=== PATIENT | male | born 1990 | race Caucasian/White ===

== ENCOUNTER 2016-06-11 18:41 | Emergency (ER) | payer OTHER ==
[2016-06-11 20:10] VITALS: BP 131/77
--- NOTE | 2016-06-11 20:30 | UC ---
Skin Complaint HPI - HPI Summary HPI Summary: patient has had a red bump at the edge of his umblicus, it is getting bigger and painful - History of Current Complaint Chief Complaint: UCSkin Time Seen by Provider: 06/11/16 20:18 Stated Complaint: SKIN COMPLAINT Hx Obtained From: Patient Onset/Duration: Lasting Days Skin Exposure Onset/Duration: Days Ago Timing: Constant Onset Severity: Moderate Current Severity: Moderate Pain Scale Used: 0-10 Numeric Location: Discrete - umbilicus Character: Swelling, Pruritus, Pain, Redness Aggravating: Nothing Alleviating: Nothing - Allergy/Home Medications Allergies/Adverse Reactions: Allergies Allergy/AdvReac Type Severity Reaction Status Date / Time No Known Allergies Allergy Verified 06/11/16 20:04 Review of Systems Constitutional: Negative Skin: Other - red pustule in belly button Eyes: Negative ENT: Negative Respiratory: Negative Cardiovascular: Negative Gastrointestinal: Negative Genitourinary: Negative Motor: Negative Neurovascular: Negative Musculoskeletal: Negative Neurological: Negative Psychological: Negative All Other Systems Reviewed And Are Negative: Yes PMH/Surg Hx/FS Hx/Imm Hx Previously Healthy: Yes Respiratory History Of: Reports: Asthma - exercised induced as a child - Surgical History Surgical History: None - Family History Known Family History: Negative: Cardiac Disease, Hypertension - Social History Alcohol Use: None Substance Use Type: None Smoking Status (MU): Never Smoked Tobacco Physical Exam Triage Information Reviewed: Yes Appearance: Well-Appearing, Well-Nourished, Pain Distress Vital Signs: Initial Vital Signs Temp 99.0 F 06/11/16 20:05 Pulse 76 06/11/16 20:05 Resp 16 06/11/16 20:05 BP 131/77 06/11/16 20:05 Pulse Ox 100 06/11/16 20:05 Vital Signs Reviewed: Yes Eye Exam: Normal Eyes: Positive: Conjunctiva Clear ENT Exam: Normal Dental Exam: Normal Neck exam: Normal Respiratory Exam: Normal Respiratory: Positive: Chest non-tender, Lungs clear, Normal breath sounds Cardiovascular Exam: Normal Cardiovascular: Positive: RRR, No Murmur, Pulses Normal Abdominal Exam: Normal Bowel Sounds: Positive: Present Musculoskeletal Exam: Normal Neurological Exam: Normal Neurological: Positive: Alert, Muscle Tone Normal Psychological Exam: Normal Skin Exam: Normal Course/Dx - Course Course Of Treatment: hx obtained, exam performed, small pustule, noted, it drained with small amount of pressure,treated for infected ingrown hair - Differential Diagnoses - Skin Complaint Differential Diagnoses: Abscess - Diagnoses Provider Diagnoses: infected ingrown hair Discharge - Discharge Plan Condition: Stable Disposition: HOME Prescriptions: Mupirocin 2% CREAM* [Bactroban 2% CREAM*] 1 applic TOPICAL BID #1 tube Additional Instructions: you are being treated for a subcutaneous infection probably caused by ingrown hair. apply the cream twice a day to the area for 1 week, follow upw tih any worsening symtpoms.
== END 2016-06-11 20:40 | disposition home or self-care (01) ==
LOC: UCCORT 18:41
DX: L73.1 Pseudofolliculitis barbae (principal)
CPT/HCPCS: 99212; G0463

== ENCOUNTER 2017-12-05 13:00 | Emergency (ER) | payer BC, OTHER ==
[2017-12-05 13:52] VITALS: BP 137/83
--- NOTE | 2017-12-07 10:00 | UC ---
Discharge - Sign-Out/Discharge Documenting (check all that apply): Post-Discharge Follow Up All imaging exams completed and their final reports reviewed: No Studies - Discharge Plan Disposition: LEFT WITHOUT BEING SEEN Referrals: Gavi Lainez [Primary Care Provider] - - Billing Disposition and Condition Disposition: Left Without Being Seen
== END 2017-12-05 13:52 | disposition left against medical advice (07) ==
LOC: UCCORT 13:00
DX: S61.412A Laceration without foreign body of left hand, initial encounter (principal); Z53.21 Procedure and treatment not carried out due to patient leaving prior to being seen by health care provider

== ENCOUNTER 2017-12-05 13:52 | Emergency (ER) | payer BC ==
[2017-12-05 15:33] VITALS: BP 137/78
[2017-12-05] MEDS ORDERED: Tetan/Diph/Pertus SYR(Tdap)* 0.5 ML SYR(BOOSTRIX) use SYR IM ONE (15:59)
--- NOTE | 2017-12-05 16:00 | UC ---
Laceration HPI - HPI Summary HPI Summary: Here w/ laceration to LEFT thumb from dirty kitchen knife today 1300. Pt states he was cutting potatoes and accidently cut into L thumb. +bleed, now under control. He denies handling any meat products while cooking. - History Of Current Complaint Chief Complaint: UCLaceration Stated Complaint: LT HAND LACERATION Time Seen by Provider: 12/05/17 15:49 Hx Obtained From: Patient Laceration Location: Hand Mechanism Of Injury: Sharp Trauma Onset/Duration: Sudden Onset, Lasting Hours Severity: Mild Pain Intensity: 2 Aggravating Factors: Nothing Hands: 1 - linear laceration 0.6cm in length, no active bleeding - Allergies/Home Medications Allergies/Adverse Reactions: Allergies Allergy/AdvReac Type Severity Reaction Status Date / Time bee venom protein (honey bee) Allergy Swelling Verified 12/05/17 15:29 pollen extracts Allergy Runny Nose Verified 12/05/17 15:29 Home Medications: Home Medications NK [No Home Medications Reported] 12/05/17 [History Confirmed 12/05/17] PMH/Surg Hx/FS Hx/Imm Hx Previously Healthy: Yes - Surgical History Surgical History: None - Family History Known Family History: Positive: Unknown, Diabetes Negative: Cardiac Disease, Hypertension - Social History Alcohol Use: None Substance Use Type: None Smoking Status (MU): Never Smoked Tobacco - Immunization History Most Recent Tetanus Shot: unsure Review of Systems Constitutional: Negative Skin: Other - lac All Other Systems Reviewed And Are Negative: Yes Physical Exam Triage Information Reviewed: Yes Appearance: Well-Appearing, No Pain Distress, Well-Nourished Vital Signs: Initial Vital Signs Temp 98.3 F 12/05/17 15:29 Pulse 64 12/05/17 15:29 Resp 14 12/05/17 15:29 BP 137/78 12/05/17 15:29 Pulse Ox 99 12/05/17 15:29 Eye Exam: Normal Eyes: Positive: Conjunctiva Clear ENT: Positive: Hearing grossly normal Neck: Positive: Supple Respiratory: Positive: Chest non-tender Cardiovascular: Positive: Pulses Normal, Brisk Capillary Refill Musculoskeletal: Positive: Strength Intact, ROM Intact, No Edema Skin Exam: Other - laceration on tuft left thumb 0.6cm in length, no active bleeding, capillary refill brisk, ulnar and radial pulses present Laceration Repair - Laceration Repair 1 Laceration Size After Repair: Length (cm) - 0.6cm Modified For Repair: No Cleansing Completed Via Routine Prep: Yes Irrigation With Pressure Irrigation Device: No Closure Material: Skin Adhesive, SteriStrips Laceration Course/Dx - Course/Dx Course Of Treatment: superficial laceration of left thumb, dermabond applied along with steristrips, patient tolerated procedure well, Tdap was administered. F/u UC for wound check 7 days - Differential Dx - Laceration/Wound Provider Diagnoses: laceration left thumb Discharge - Sign-Out/Discharge Documenting (check all that apply): Patient Departure All imaging exams completed and their final reports reviewed: No Studies - Discharge Plan Condition: Stable Disposition: HOME Patient Education Materials: Skin Adhesive Care (ED), Steristrips (ED), Laceration (ED) Referrals: Gavi Lainez [Primary Care Provider] - - Billing Disposition and Condition Condition: STABLE Disposition: Home
== END 2017-12-05 16:44 | disposition home or self-care (01) ==
LOC: UCCORT 13:52
DX: W26.0XXA Contact with knife, initial encounter (principal); Y93.G1 Activity, food preparation and clean up; Y92.9 Unspecified place or not applicable; S61.012A Laceration without foreign body of left thumb without damage to nail, initial encounter; Z23 Encounter for immunization
CPT/HCPCS: 12001; 90471; 90715; 99211; G0463

== ENCOUNTER 2018-12-12 07:11 | Emergency (ER) | payer BC ==
[2018-12-12 07:22] VITALS: BP 141/84
--- NOTE | 2018-12-12 07:37 | UC ---
Throat Pain/Nasal Gianni HPI - HPI Summary HPI Summary: 28-year-old male comes in with a chief complaint of sore throat times one day. Hurts when he swallows is about a 6 out of 10. His daughter was diagnosed with strep throat 2 days ago is on amoxicillin. Minimal rhinorrhea. No chest congestion. - History of Current Complaint Chief Complaint: UCGeneralIllness Stated Complaint: SORE THROAT Time Seen by Provider: 12/12/18 07:19 Pain Intensity: 6 - Allergies/Home Medications Allergies/Adverse Reactions: Allergies Allergy/AdvReac Type Severity Reaction Status Date / Time bee venom protein (honey bee) Allergy Swelling Verified 12/12/18 07:22 pollen extracts Allergy Runny Nose Verified 12/12/18 07:22 Home Medications: Home Medications Ibuprofen TAB* [Motrin TAB* 400 MG] 400 mg PO Q6H PRN 12/12/18 [History Confirmed 12/12/18] PMH/Surg Hx/FS Hx/Imm Hx Previously Healthy: Yes - Surgical History Surgical History: None - Family History Known Family History: Positive: Unknown, Diabetes Negative: Cardiac Disease, Hypertension - Social History Alcohol Use: None Substance Use Type: None Smoking Status (MU): Never Smoked Tobacco - Immunization History Most Recent Tetanus Shot: unsure Review of Systems All Other Systems Reviewed And Are Negative: Yes Constitutional: Positive: Negative Skin: Positive: Negative Eyes: Positive: Negative ENT: Positive: Sore Throat, Nasal Discharge Respiratory: Positive: Negative Cardiovascular: Positive: Negative Gastrointestinal: Positive: Negative Motor: Positive: Negative Neurovascular: Positive: Negative Musculoskeletal: Positive: Negative Neurological: Positive: Negative Psychological: Positive: Negative Is Patient Immunocompromised?: No Physical Exam Triage Information Reviewed: Yes Appearance: No Pain Distress, Well-Nourished, Ill-Appearing - mild Vital Signs: Initial Vital Signs Temp 97.5 F 12/12/18 07:20 Pulse 72 12/12/18 07:20 Resp 16 12/12/18 07:20 BP 141/84 12/12/18 07:20 Pulse Ox 100 12/12/18 07:20 Vital Signs Reviewed: Yes Eye Exam: Normal Eyes: Positive: Conjunctiva Clear ENT: Positive: Pharyngeal erythema, TMs normal Neck: Positive: Supple Respiratory: Positive: Lungs clear, Normal breath sounds, No respiratory distress Cardiovascular: Positive: RRR Musculoskeletal: Positive: Strength Intact, ROM Intact Neurological: Positive: Alert Psychological: Positive: Age Appropriate Behavior Skin Exam: Normal Throat Pain/Nasal Course/Dx - Course Course Of Treatment: DISCUSSED VIRAL VERSES BACTERIAL INFECTION AND THE ROLE OF ANTIBIOTICS. PATIENT'S DAUGHTER IS STREP POSITIVE. PATIENT PREFERS TO BE ON ANTIBIOTICS AT THIS TIME. - Differential Dx/Diagnosis Provider Diagnosis: Pharyngitis Discharge ED - Sign-Out/Discharge Documenting (check all that apply): Patient Departure All imaging exams completed and their final reports reviewed: No Studies - Discharge Plan Condition: Stable Disposition: HOME Prescriptions: Amoxicillin PO (*) [Amoxicillin 875 MG (*)] 875 mg PO BID #20 tab Patient Education Materials: Pharyngitis (ED) Referrals: Edgar Lozoya MD [Primary Care Provider] - Additional Instructions: FOLLOW UP WITH YOUR DOCTOR IF NOT COMPLETELY IMPROVED. GET REEVALUATED SOONER IF WORSE OR ANY QUESTIONS OR CONCERNS. - Billing Disposition and Condition Condition: STABLE Disposition: Home
== END 2018-12-12 07:41 | disposition home or self-care (01) ==
LOC: UCCORT 07:11
DX: J02.9 Acute pharyngitis, unspecified (principal); Z20.818 Contact with and (suspected) exposure to other bacterial communicable diseases
CPT/HCPCS: 87651; 99212; G0463